=== PATIENT | female | born 1930 | race Caucasian/White ===

== ENCOUNTER → 2017-11-16 | Emergency (ER) | payer OTHER ==
[~2017-11-16] VITALS: Ht 160 cm; Wt 72.6 kg
[~2017-11-16] MED LIST: AGGRENOX CAP1 BOTTLE PO; AMLODIPINE BESYL5 MG PO; ARICEPT5 MG PO; AVALIDE 300-251 TAB PO; COUMADIN5 MG; LEXAPRO5 MG PO; OMEGA-3 FISH OI1 CAP PO; PROVASMIN PO; SYNTHROID50 MCG PO; TRAMADOL HCL-1 UDTAB PO; ZANTAC300 MG PO; ZOCOR40 MG PO
== END | disposition home or self-care (01) ==
LOC: ER 20:05
DX: S90.31XA Contusion of right foot, initial encounter (principal); S30.0XXA Contusion of lower back and pelvis, initial encounter; W07.XXXA Fall from chair, initial encounter; Y93.89 Activity, other specified; Y92.098 Other place in other non-institutional residence as the place of occurrence of the external cause; Y99.8 Other external cause status